=== PATIENT | female | born 1980 | race Caucasian/White ===

== ENCOUNTER 2018-04-07 13:35 | Emergency (ER) | payer OTHER ==
--- NOTE | 2018-04-07 13:47 | PDOC ---
History of Present Illness - General History Source: Patient, Friend Exam Limitations: No Limitations - History of Present Illness Initial Comments: 04/07/18 14:37 The patient is a 37 year old female, with no significant past medical history, who presents to the emergency department with, 1 week of chest discomfort and altered mental status. She describes her chest discomfort as an achiness. As per patients friends, upon their arrival to her apartment she was acting out of character, shaking and acting somnolent. As per patient, she has been experiencing chest discomfort for a week with associated lethargy which she believed was due to a chest cold. Patient and friends note that her feet were purple at her apartment but, since arriving to the ED has returned to its baseline. She notes working out using a treadmill over the past week. Patient notes she does not feel like herself and friends at bedside endorse that she is normally more upbeat prompting her visit to the ER today. She denies any upper respiratory symptoms including cough, runny nose, or congestion. She denies any lower extremity edema or calf pain. She denies any shortness of breath or exertional dyspnea. She denies recent fevers, chills, headache or dizziness. She denies recent nausea, vomit, diarrhea or constipation. She denies recent dysuria, frequency, urgency or hematuria. Allergies: NKA Past surgical history: None reported. Social history: Denies history of smoking. Denies EtOH use and recreational drug use. <Nella Bedoya - Last Filed: 04/07/18 16:04> <Shirin Campbell - Last Filed: 04/07/18 17:42> - General Chief Complaint: Cold Symptoms Stated Complaint: CHEST COLD Time Seen by Provider: 04/07/18 13:46 Past History <Nella Bedoya - Last Filed: 04/07/18 16:04> - Suicide/Smoking/Psychosocial Hx Smoking Status: No Smoking History: Never smoked Number of Cigarettes Smoked Daily: 0 <Shirin Campbell - Last Filed: 04/07/18 17:42> - Past Medical History Allergies/Adverse Reactions: Allergies Allergy/AdvReac Type Severity Reaction Status Date / Time No Known Allergies Allergy Unverified 10/20/11 18:57 Home Medications: Ambulatory Orders Control 1 tab PO DAILY 04/07/18 Review of Systems - Review of Systems Able to Perform ROS?: Yes Comments:: 04/07/18 14:37 GENERAL/CONSTITUTIONAL: No fever or chills. No weakness. HEAD, EYES, EARS, NOSE AND THROAT: No change in vision. No ear pain or discharge. No sore throat. +CARDIOVASCULAR: Chest discomfort. No shortness of breath. RESPIRATORY: No cough, wheezing, or hemoptysis. GASTROINTESTINAL: No nausea, vomiting, diarrhea or constipation. GENITOURINARY: No dysuria, frequency, or change in urination. MUSCULOSKELETAL: No joint or muscle swelling or pain. No neck or back pain. SKIN: No rash +NEUROLOGIC: Altered mental status. No headache, vertigo, loss of consciousness , or change in strength/sensation. ENDOCRINE: No increased thirst. No abnormal weight change. HEMATOLOGIC/LYMPHATIC: No anemia, easy bleeding, or history of blood clots. ALLERGIC/IMMUNOLOGIC: No hives or skin allergy. All Other Systems: Reviewed and Negative <Nella Bedoya - Last Filed: 04/07/18 16:04> *Physical Exam - Vital Signs Last Vital Signs Temp Pulse Resp BP Pulse Ox 97.8 F 133 H 18 149/111 H 96 04/07/18 13:36 04/07/18 13:36 04/07/18 13:36 04/07/18 13:36 04/07/18 13:36 <Nella Bedoya - Last Filed: 04/07/18 16:04> - Physical Exam Comments: GENERAL: Awake, alert, and fully oriented, in no acute distress HEAD: No signs of trauma EYES: PERRLA, EOMI, sclera anicteric, conjunctiva clear ENT: Auricles normal inspection, hearing grossly normal, nares patent, oropharynx clear without exudates. Moist mucosa NECK: Normal ROM, supple, no lymphadenopathy, JVD, or masses LUNGS: Breath sounds equal, clear to auscultation bilaterally. No wheezes, and no crackles HEART: Regular rate and rhythm, normal S1 and S2, no murmurs, rubs or gallops ABDOMEN: Soft, nontender, normoactive bowel sounds. No guarding, no rebound. No masses EXTREMITIES: Normal range of motion, no edema. No clubbing or cyanosis. No cords, erythema, or tenderness. NEUROLOGICAL: Cranial nerves II through XII grossly intact. Normal speech, normal gait. Motor and sensation intact. SKIN: Warm, Dry, normal turgor, no rashes or lesions noted. PSYCHIATRIC: No AH/VH, no SI/HI. Flattened affect. <Shirin Campbell - Last Filed: 04/07/18 17:42> Heart Score/ECG Review - ECG Impressions Comment:: EKG read 14:10- NSR 99 bpm, no acute ST/T changes <Shirin Campbell - Last Filed: 04/07/18 17:42> ED Treatment Course - LABORATORY CBC & Chemistry Diagram: 04/07/18 14:50 04/07/18 14:50 - ADDITIONAL ORDERS Additional order review: Laboratory Results 04/07/18 04/07/18 13:51 13:51 Urine Color Yellow Urine Appearance Clear Urine pH 5.5 Ur Specific Duncan 1.010 Urine Protein Negative Urine Glucose (UA) Negative Urine Ketones Negative Urine Blood Trace-intact H Urine Nitrite Negative Urine Bilirubin Negative Urine Urobilinogen 0.2 Ur Leukocyte Esterase Negative Urine RBC 0-2 Urine WBC 0-2 Urine HCG, Qual Negative <Nella Bedoya - Last Filed: 04/07/18 16:04> - LABORATORY CBC & Chemistry Diagram: 04/07/18 14:50 04/07/18 14:50 <Shirin Campbell - Last Filed: 04/07/18 17:42> Medical Decision Making - Medical Decision Making 04/07/18 14:34 Pt presents with AMS- flat affect, appears anxious. Friends brought her in as she was not herself. She states she thinks it is her chest cold, however, she has no respiratory symptoms. She has 1 risk factor for PE (is on OCPs), but no calf or thigh tenderness, no STREET, no SOB. Low risk via clinical eval, will send D-dimer. Thyroid storm is also on the differential, TSH pending. No fever in ED , no neck stiffness, no neuro complaints, so meningitis unlikely. 04/07/18 15:41 Results discussed with patient, who denied any drinking today, but then stated she was drinking last night. She states "I just had a few beers". I explained that her alcohol level is still extremely high and out of proportion to what she explained. I asked if she drinks frequently, she denied. Given that she is functioning and was ambulatory on presentation to the ED, I am concerned that she may have a history of alcohol abuse and is not admitting to it. However, at this point, she is not admitting to anything. Will continue to hydrate her and will add a banana bag. Will monitor until she is clinically improved. 04/07/18 16:50 D-dimer slightly elevated, however, PE is unlikely, especially in light of findings with alcohol (it was send with low suspicion when patient reported a chest cold). 04/07/18 17:28 Pt ambulatory, back to baseline mental status. No longer confused. No signs of withdrawal. Stable for DC home. <Shirin Campbell - Last Filed: 04/07/18 17:42> *DC/Admit/Observation/Transfer - Attestations Scribe Attestion: 04/07/18 14:38 Documentation prepared by Nella Bedoya, acting as medical language specialist for Shirin Campbell MD. <Nella Bedoya - Last Filed: 04/07/18 16:04> - Discharge Dispostion Decision to Admit order: No <Shirin Campbell - Last Filed: 04/07/18 17:42> Diagnosis at time of Disposition: Alcohol intoxication Qualifiers: Complication of substance-induced condition: with delirium Qualified Code(s): F10.921 - Alcohol use, unspecified with intoxication delirium - Discharge Dispostion Disposition: HOME Condition at time of disposition: Improved - Patient Instructions Printed Discharge Instructions: DI for Alcohol Poisoning
[2018-04-07 14:00] LABS: PH,URINE 5.5 (4.5-8); URINE APPEARANCE Clear; URINE BILIRUBIN Negative (NEGATIVE); URINE COLOR Yellow; URINE GLUCOSE (UA) Negative (NEGATIVE); URINE KETONE Negative (NEGATIVE); URINE LEUK ESTERASE Negative (NEGATIVE); URINE NITRITE Negative (NEGATIVE); URINE PROTEIN Negative (NEGATIVE); URINE UROBILINOGEN 0.2 (0.2-1.0)
[2018-04-07 14:07] VITALS: TEMP 97.8; BMI 21.7
[2018-04-07 14:10] LABS: URINE RBC 0-2 /hpf (0-3); URINE WBC 0-2 (0-5)
[2018-04-07] MEDS ORDERED: SODIUM CHLORIDE 1,000 ML IV STA ×2 (14:26→15:40)
[2018-04-07 15:03] LABS: BASO % 1.1 % (0-2.0); EOS % 2.2 % (0-4.5); HEMATOCRIT 47.4 % (32.4-45.2); HEMOGLOBIN 15.8 GM/dl (10.7-15.3); LYMPH % 51.2 % (8-40); MCH 31.5 pg (25.7-33.7); MCHC 33.3 g/dl (32.0-36.0); MEAN CELL VOLUME 94.6 fl (80-96); MEAN PLT VOLUME 7.3 fl (7.5-11.1); MONO % 3.8 % (3.8-10.2); NEUT % 41.7 % (42.8-82.8); PLATELET COUNT 270 K/MM3 (134-434); RBC 5.01 M/mm3 (3.60-5.2); WHITE BLOOD COUNT 4.3 K/mm3 (4.0-10.8)
[2018-04-07 15:13] LABS: ALBUMIN 3.9 g/dl (3.5-5.0); ALK PHOS 80 U/L (32-92); ANION GAP 13 MMOL/L (8-16); BILIRUBIN,TOTAL 0.6 mg/dl (0.2-1.0); BLOOD UREA NITROGEN 11 mg/dl (7-18); CALCIUM 8.5 mg/dl (8.4-10.2); CHLORIDE 105 mmol/L (98-107); CO2 24 mmol/L (22-28); CREATININE 0.6 mg/dl (0.6-1.3); GLUCOSE,RANDOM 93 mg/dl (74-106); INR 1.01 (0.82-1.09); POTASSIUM 3.7 mmol/L (3.5-5.1); PROTHROMBIN TIME (PATIENT) 11.3 SEC (10.2-13.0); SGOT/AST 50 U/L (10-42); SGPT/ALT 25 U/L (10-40); SODIUM 142 mmol/L (136-145); TOT PROT 7.2 g/dl (6.4-8.3)
[2018-04-07 15:31] LABS: COCAINE, UR NEGATIVE ng/ml (CUTOFF=300); METHADONE, UR NEGATIVE ng/ml (CUTOFF=300); OPIATES, URI NEGATIVE ng/ml (CUTOFF=300); PHENCYCLIDINE,URINE NEGATIVE ng/ml (CUTOFF=25); URINE AMPHETAMINES NEGATIVE ng/ml (CUTOFF=500); URINE BARBITURATES NEGATIVE ng/ml (CUTOFF=200); URINE BENZODIAZEPINES NEGATIVE ng/ml (CUTOFF=200)
[2018-04-07] MEDS ORDERED: FOLIC ACID INJECTION - 1 MG, THIAMINE HCL 100 MG, MULTIVIT INJECTION ADULT 10 ML in SOD... IVPB ONE (15:41)
[2018-04-07] MEDS ORDERED: FOLIC ACID 5 MG/1 ML ONE (16:09)
[2018-04-07] MEDS ORDERED: MULTIVIT INJ. ADULT COMBO WITH VIT K 1 COMBO 10 ML VIAL IV ONE (16:09)
[2018-04-07] MEDS ORDERED: THIAMINE HCL 200 MG/2 ML VIAL ONE (16:09)
[2018-04-07 16:51] VITALS: BP 124/81; PULSE 109
--- NOTE | 2018-04-08 11:33 | EKG ---
Test Reason : Blood Pressure : / mmHG Vent. Rate : 099 BPM Atrial Rate : 099 BPM P-R Int : 152 ms QRS Dur : 090 ms QT Int : 366 ms P-R-T Axes : 069 001 065 degrees QTc Int : 469 ms NORMAL SINUS RHYTHM POSSIBLE LEFT ATRIAL ENLARGEMENT ANTERIOR INFARCT , AGE UNDETERMINED ABNORMAL ECG NO PREVIOUS ECGS AVAILABLE Confirmed by NICHOLE LINO MD ([id number]) on 04/08/2018 11:33:11 AM Referred By: JAYMIE PILLAI Confirmed By:NICHOLE LINO MD
== END 2018-04-07 17:36 | disposition home or self-care (01) ==
LOC: FER 13:35
PROC: 3E033GC Introduction of Other Therapeutic Substance into Peripheral Vein, Percutaneous Approach (ICD-10-PCS; principal; 2018-04-07)
PROC: 3E0337Z Introduction of Electrolytic and Water Balance Substance into Peripheral Vein, Percutaneous Approach (ICD-10-PCS; 2018-04-07)
DX: F10.921 Alcohol use, unspecified with intoxication delirium (principal)
CPT/HCPCS: 36415; 80053; 80307; 81003; 81015; 82550; 83605; 84443; 84484; 84703; 85025; 85379; 85610; 87804; 93005; 99283-25; J7030